=== PATIENT | female | born 1975 | race Caucasian/White ===

== ENCOUNTER 2016-11-14 07:57 | Inpatient (IN) | payer OTHER ==
[2016-11-14 08:03] VITALS: TEMP 98.2; O2SAT 96
[2016-11-14] MEDS ORDERED: ONDANSETRON 4 MG/2 ML VIAL ONE (08:16)
[2016-11-14] MEDS ORDERED: NS 1,000 ML IV ONE ×2 (08:30→09:01)
[2016-11-14] MEDS ORDERED: ONDANSETRON 4 MG/2 ML VIAL IVP ONE (08:30)
--- NOTE | 2016-11-14 08:40 | EDPHY ---
H & P Time Seen by Provider: 11/14/16 08:13 HPI/ROS: Chief complaint. Post childbirth complication HPI. Patient is a healthy 41-year-old female gave vaginally 1 week ago at an [facility]. She had some hypertension at the last 2 weeks of her and her delivery was induced. She was in the hospital for several days felt well when she went home. The last 2 nights she has had some mental confusion in the middle the night as well as shaking. She says hard to chew and swallow at times. She has had nausea vomiting. Again it was a vaginal . She had second-degree tear still has some pelvic pain from the sutures. Decreasing lochia. No fever. No headache. No change in her vision though she did have some spots before her vision yesterday when she went for a walk but she attributes this to low blood sugar. She normally does not have high blood pressure. 2 para 1, intrauterine demise at 22 weeks ROS Constitutional. no fever/chills, no weakness Eyes. no problems with vision ENT. no sore throat, no nasal drainage Cardiovascular. no chest pain Respiratory. no shortness of breath, no cough Abdominal. Low abdominal pain with nausea and vomiting . no problems urinating MS. no calf pain/swelling, no neck/back pain, no joint pain Skin. no rash Lymph. no swollen glands Neuro. Shaky and confusion Past Medical/Surgical History: Healthy Social History: , nonsmoker, no alcohol Smoking Status: Never smoked Physical Exam: General Appearance: Alert well-developed female initially crying moderate distress vital signs show heart rate 122 blood pressure 161/111 Eyes: Pupils equal and round no pallor or injection. ENT, Mouth: Mucous membranes are moist. Respiratory: There are no retractions, lungs are clear to auscultation. Cardiovascular: Regular rate and rhythm. Gastrointestinal: Abdomen is soft and nontender, no masses, bowel sounds normal. Neurological: Awake and alert, sensory and motor exams grossly normal. Skin: Warm and dry, no rashes. Musculoskeletal: Neck is supple nontender. Extremities symmetrical, full range of motion. Psychiatric: Patient is oriented X 3, there is no agitation. Constitutional: Initial Vital Signs Temperature (C) 36.8 C 11/14/16 08:00 Heart Rate 122 H 11/14/16 08:00 Respiratory Rate 19 11/14/16 08:00 Blood Pressure 161/111 H 11/14/16 08:00 O2 Sat (%) 96 11/14/16 08:00 O2 Delivery Mode Room Air Allergies/Adverse Reactions: amoxicillin trihydrate [From Augmentin] Allergy (Verified 11/14/16 10:04) Other-Enter Comments bupropion HCl [From Wellbutrin] Allergy (Verified 11/14/16 10:04) Other-Enter Comments potassium clavulanate [From Augmentin] Allergy (Verified 11/14/16 10:04) Other-Enter Comments Home Medications: Medication Instructions Recorded Herbals/Supplements -Info Only 1 ea PO DAILY 11/14/16 Ibuprofen [Motrin (*)] 600 mg PO Q6H 11/14/16 Medical Decision Making Procedures: IV normal saline. [place] Patient is given labetalol by mouth in our emergency department for high blood pressure ED Course/Re-evaluation: 9:30 a.m. repeat blood pressure 165/105. Patient has another emotional outburst I have consulted and discussed the case with Dr. Cassy Mejias who recommends admission. Her PA will come to see the patient in the department. I have discussed lab data results with the patient and her . We discussed treatment plan including need for admission and further evaluation they expressed understanding and agreement Differential Diagnosis: The patient developed hypertension in the last 2 weeks of her and her delivery was induced. She has liver function studies but not low platelets or fragmented red cells. I am concerned about preeclampsia and HELLP syndrome as well - Data Points Laboratory Results: Laboratory Results 11/14/16 09:33 11/14/16 08:25 11/14/16 11/14/16 11/14/16 09:33 08:50 08:25 WBC RBC Hgb Hct MCV MCH MCHC RDW Plt Count 384 10^3/uL 10^3/uL (150-400) MPV Neut % (Auto) Lymph % (Auto) [place] % (Auto) Eos % (Auto) Baso % (Auto) Nucleat RBC Rel Count Absolute Neuts (auto) Absolute Lymphs (auto) Absolute Monos (auto) Absolute Eos (auto) Absolute Basos (auto) Absolute Nucleated RBC Immature Gran % Seg Neutrophils % Band Neutrophils % Lymphocytes % Monocytes % Eosinophils % Basophils % Metamyelocytes % Myelocytes % Immature Gran # Absolute Seg Neuts Absolute Band Neuts Absolute Lymphocytes Absolute Monocytes Absolute Eosinophils Absolute Basophils Absolute Metamyelocyte Absolute Myelocytes Nucleated RBCs Platelet Estimate Normal RBC Morphology SEE COMMENT (NORMAL) Polychromasia Smear Review By PT 11.7 SEC L SEC (12.0-15.0) INR 0.87 (0.83-1.16) APTT 27.0 SEC SEC (23.0-38.0) Fibrinogen 518 mg/dL H mg/dL (214-456) D-Dimer 1.83 ug/mLFEU H ug/mLFEU (0.00-0.50) Coag Pathologist Com Pending Sodium 138 mEq/L mEq/L (134-144) Potassium 5.1 mEq/L mEq/L (3.5-5.2) Chloride 108 mEq/L mEq/L (97-110) Carbon Dioxide 21 mEq/l L mEq/l (22-31) Anion Gap 9 mEq/L mEq/L (8-16) BUN 19 mg/dL mg/dL (7-23) Creatinine 0.7 mg/dL mg/dL (0.6-1.0) Estimated GFR > 60 Glucose 93 mg/dL mg/dL (70-100) Uric Acid 3.2 mg/dL mg/dL (2.5-6.8) Calcium 9.5 mg/dL mg/dL (8.5-10.4) Total Bilirubin 0.4 mg/dL mg/dL (0.1-1.4) Conjugated Bilirubin 0.4 mg/dL mg/dL (0.0-0.5) Unconjugated Bilirubin 0.0 mg/dL mg/dL (0.0-1.1) AST 60 IU/L H IU/L (14-46) ALT 100 IU/L H IU/L (9-52) Alkaline Phosphatase 126 IU/L IU/L (38-126) Total Protein 6.2 g/dL L g/dL (6.3-8.2) Albumin 3.5 g/dL g/dL (3.5-5.0) Urine Color PALE YELLOW Urine Appearance CLEAR Urine pH 6.0 (5.0-7.5) Ur Specific [place] 1.002 (1.002-1.030) Urine Protein NEGATIVE (NEGATIVE) Urine Ketones NEGATIVE (NEGATIVE) Urine Blood 1+ H (NEGATIVE) Urine Nitrate NEGATIVE (NEGATIVE) Urine Bilirubin NEGATIVE (NEGATIVE) Urine Urobilinogen NEGATIVE EU EU (0.2-1.0) Ur Leukocyte Esterase NEGATIVE (NEGATIVE) Urine RBC NONE SEEN /hpf /hpf (0-3) Urine WBC NONE SEEN /hpf /hpf (0-3) Ur Epithelial Cells NONE SEEN /lpf /lpf (NONE-1+) Ur Culture Indicated? NOT INDICATED (NI) Urine Glucose NEGATIVE (NEGATIVE) 11/14/16 08:25 WBC 8.48 10^3/uL 10^3/uL (3.80-9.50) RBC 3.51 10^6/uL L 10^6/uL (4.18-5.33) Hgb 11.5 g/dL L g/dL (12.6-16.3) Hct 32.9 % L % (38.0-47.0) MCV 93.7 fL fL (81.5-99.8) MCH 32.8 pg pg (27.9-34.1) MCHC 35.0 g/dL g/dL (32.4-36.7) RDW 12.6 % % (11.5-15.2) Plt Count 320 10^3/uL 10^3/uL (150-400) MPV 9.4 fL fL (8.7-11.7) Neut % (Auto) Not Reported Lymph % (Auto) Not Reported [place] % (Auto) Not Reported Eos % (Auto) Not Reported Baso % (Auto) Not Reported Nucleat RBC Rel Count 0.4 % H % (0.0-0.2) Absolute Neuts (auto) Not Reported Absolute Lymphs (auto) Not Reported Absolute Monos (auto) Not Reported Absolute Eos (auto) Not Reported Absolute Basos (auto) Not Reported Absolute Nucleated RBC 0.03 10^3/uL H 10^3/uL (0-0.01) Immature Gran % Not Reported Seg Neutrophils % 63 % % Band Neutrophils % 3 % % Lymphocytes % 24 % % Monocytes % 4 % % Eosinophils % 2 % % Basophils % 1 % % Metamyelocytes % 2 % % Myelocytes % 1 % % Immature Gran # Not Reported Absolute Seg Neuts 5.34 10^/uL 10^/uL (1.70-6.50) Absolute Band Neuts 0.25 10^3/uL 10^3/uL (0.00-0.70) Absolute Lymphocytes 2.04 10^3/uL 10^3/uL (1.00-3.00) Absolute Monocytes 0.34 10^3/uL 10^3/uL (0.30-0.80) Absolute Eosinophils 0.17 10^3/uL 10^3/uL (0.03-0.40) Absolute Basophils 0.08 10^3/uL 10^3/uL (0.02-0.10) Absolute Metamyelocyte 0.17 10^3/mL H 10^3/mL (0.00-0.00) Absolute Myelocytes 0.08 10^3/mL H 10^3/mL (0.00-0.00) Nucleated RBCs 1 /100 WBC H /100 WBC (0-0) Platelet Estimate ADEQUATE (ADEQ) Normal RBC Morphology Polychromasia 1+ H Smear Review By Pending PT INR APTT Fibrinogen D-Dimer Coag Pathologist Com Sodium Potassium Chloride Carbon Dioxide Anion Gap BUN Creatinine Estimated GFR Glucose Uric Acid Calcium Total Bilirubin Conjugated Bilirubin Unconjugated Bilirubin AST ALT Alkaline Phosphatase Total Protein Albumin Urine Color Urine Appearance Urine pH Ur Specific [place] Urine Protein Urine Ketones Urine Blood Urine Nitrate Urine Bilirubin Urine Urobilinogen Ur Leukocyte Esterase Urine RBC Urine WBC Ur Epithelial Cells Ur Culture Indicated? Urine Glucose Medications Given: Discontinued Medications Sodium Chloride (Ns) 1,000 mls @ 0 mls/hr IV ONCE ONE PRN Reason: Wide Open Stop: 11/14/16 08:31 Last Admin: 11/14/16 08:31 Dose: 1,000 mls Sodium Chloride (Ns) 1,000 mls @ 0 mls/hr IV ONCE ONE PRN Reason: Wide Open Stop: 11/14/16 09:02 Last Admin: 11/14/16 09:03 Dose: 1,000 mls Labetalol HCl (Trandate) 200 mg PO ONCE ONE Stop: 11/14/16 09:41 Last Admin: 11/14/16 10:20 Dose: 200 mg Ondansetron HCl (Zofran) 4 mg IVP EDNOW ONE Stop: 11/14/16 08:31 Last Admin: 11/14/16 08:31 Dose: 4 mg Departure - Departure Disposition: [facility] Inpatient Acute Clinical Impression: Preeclampsia Qualifiers: Trimester: unspecified trimester Qualified Code(s): O14.90 - Unspecified pre- eclampsia, unspecified trimester HELLP syndrome Qualifiers: Trimester: unspecified trimester Qualified Code(s): O14.20 - HELLP syndrome ( HELLP), unspecified trimester Condition: Fair
[2016-11-14 08:51] LABS: ABSOLUTE NRBC COUNT 0.03 10^3/uL (0-0.01); ADD DIFF? YES; ADD MORPH? NO; ADD SCAN? NO; ATYPICAL LYMPHOCYTE FLAG 10 (0-99); FRAGMENT RBC FLAG 0 (0-99); HEMATOCRIT 32.9 % (38.0-47.0); HEMOGLOBIN 11.5 g/dL (12.6-16.3); LEFT SHIFT FLG 40 (0-99); LIPEMIA HEMOLYSIS FLAG 90 (0-99); MEAN CELL HEMOGLOBIN 32.8 pg (27.9-34.1); MEAN CELL VOLUME 93.7 fL (81.5-99.8); MEAN PLATELET VOLUME 9.4 fL (8.7-11.7); NRBC-AUTO% 0.4 % (0.0-0.2); PLATELET CLUMPS FLAG 0 (0-99); PLATELET COUNT 320 10^3/uL (150-400); RED BLOOD CELL COUNT 3.51 10^6/uL (4.18-5.33); RED CELL DISTRIBUTION WIDTH 12.6 % (11.5-15.2)
[2016-11-14 08:58] LABS: ALANINE AMINOTRANSFERASE 100 IU/L (9-52); ALBUMIN 3.5 g/dL (3.5-5.0); ALKALINE PHOSPHATASE 126 IU/L (38-126); ANION GAP 9 mEq/L (8-16); ASPARTATE AMINOTRANSFERASE 60 IU/L (14-46); BILIRUBIN,TOTAL 0.4 mg/dL (0.1-1.4); BILIRUBIN-CONJUGATED 0.4 mg/dL (0.0-0.5); CALCIUM 9.5 mg/dL (8.5-10.4); CARBON DIOXIDE 21 mEq/l (22-31); CHLORIDE 108 mEq/L (97-110); CREATININE 0.7 mg/dL (0.6-1.0); GLOMERULAR FILTRATION RATE > 60; GLUCOSE 93 mg/dL (70-100); POTASSIUM 5.1 mEq/L (3.5-5.2); SODIUM 138 mEq/L (134-144); TOTAL PROTEIN 6.2 g/dL (6.3-8.2); URIC ACID 3.2 mg/dL (2.5-6.8)
[2016-11-14 09:25] LABS: COLOR PALE YELLOW; LEUKOCYTE ESTERASE,URINE NEGATIVE (NEGATIVE); NITRITE,URINE NEGATIVE (NEGATIVE)
[2016-11-14 09:39] LABS: RBC,URINE NONE SEEN /hpf (0-3); WBC,URINE NONE SEEN /hpf (0-3)
[2016-11-14] MEDS ORDERED: LABETALOL HCL 200 MG TAB PO ONE (09:40)
[2016-11-14 09:45] LABS: PLATELET ESTIMATE ADEQUATE (ADEQ); POLYCHROMASIA 1+
[2016-11-14 09:56] VITALS: RESP 18
[2016-11-14 10:18] LABS: PLATELET COUNT 384 10^3/uL (150-400)
[2016-11-14 10:37] LABS: INR 0.87 (0.83-1.16); PROTIME(PATIENT) 11.7 SEC (12.0-15.0)
[2016-11-14 10:38] LABS: FIBRINOGEN 518 mg/dL (214-456)
[2016-11-14] MEDS ORDERED: MAGNESIUM SULF 4 GM/WATER 100 ML BAG IV ONE (11:00)
[2016-11-14] MEDS ORDERED: MAGNESIUM SULF 2 GM/WATER 50 ML IV ONE (11:00)
[2016-11-14] MEDS ORDERED: CALCIUM GLUC 10% 1 GM/10 ML VIAL IVP PRN (11:29)
[2016-11-14] MEDS ORDERED: LIDOCAINE 2% JELLY 5 ML TUBE ONE (12:01)
--- NOTE | 2016-11-14 12:36 | PDGENHP ---
History and Physical - Chief Complaint 41 y.o. presents 5 days after delivery after induction for GHTN. - History of Present Illness 41 y.o. female presents 5 days after delivery for GHTN at [facility]. Patient reports not feeling well with increased anxiety and inability to eat. Denies current headaches, visual changes or RUQ pain. Patient seen in ER and noted to have elevated BPs- 160s/100s and elevated LFTs. Called and consulted with Dr. Ho and patient to be admitted to L&D for preeclampsia. History Information - Allergies/Home Medication List Allergies/Adverse Reactions: amoxicillin trihydrate [From Augmentin] Allergy (Verified 11/14/16 10:04) Other-Enter Comments bupropion HCl [From Wellbutrin] Allergy (Verified 11/14/16 10:04) Other-Enter Comments potassium clavulanate [From Augmentin] Allergy (Verified 11/14/16 10:04) Other-Enter Comments Home Medications: Herbals/Supplements -Info Only 1 ea PO DAILY 11/14/16 [Last Taken 11/13/16] Ibuprofen [Motrin (*)] 600 mg PO Q6H 11/14/16 [Last Taken 11/13/16] I have personally reviewed and updated: family history, medical history, social history, surgical history - Past Medical History Additional medical history: anxiety - Surgical History Reports: no pertinent surgical hx - Family History Positive for: non-pertinent - Social History Smoking Status: Never smoked Alcohol Use: None Drug Use: None Review of Systems ROS: 10pt was reviewed & negative except for what was stated in HPI & below Constitutional: Reports: other (anxious) EENMT: Reports: no symptoms Cardiac: Reports: no symptoms Respiratory: Reports: no symptoms Gastrointestinal: Reports: no symptoms Genitourinary: Reports: no symptoms Muscolosketal: Reports: no symptoms Skin: Reports: no symptoms Neurological: Reports: anxiety, emotional problems Hematologic/Lymphatic: Reports: no symptoms Immunologic/Allergy: Reports: no symptoms Physical Exam Temp Pulse Resp BP Pulse Ox 36.8 C 88 18 165/105 H 96 11/14/16 08:00 11/14/16 09:54 11/14/16 09:54 11/14/16 09:54 11/14/16 09:54 Constitutional: other (anxious) Eyes: PERRL Ears, Nose, Mouth, Throat: moist mucous membranes, hearing normal Cardiovascular: regular rate and rhythym, no murmur, rub, or gallop Respiratory: no respiratory distress, no rales or rhonchi Gastrointestinal: normoactive bowel sounds, soft, non-tender abdomen Genitourinary: no bladder fullness Skin: warm, normal color Musculoskeletal: full muscle strength Neurologic: AAOx3, sensation intact bilaterally Psychiatric: anxious, depressed, agitated, poor insight, poor judgement Lymph, Heme, Immunologic: no cervical LAD Lab Data & Imaging Review 11/14/16 09:33 11/14/16 08:25 WBC 8.48 10^3/uL (3.80-9.50) 11/14/16 08:25 RBC 3.51 10^6/uL (4.18-5.33) L 11/14/16 08:25 Hgb 11.5 g/dL (12.6-16.3) L 11/14/16 08:25 Hct 32.9 % (38.0-47.0) L 11/14/16 08:25 MCV 93.7 fL (81.5-99.8) 11/14/16 08:25 MCH 32.8 pg (27.9-34.1) 11/14/16 08:25 MCHC 35.0 g/dL (32.4-36.7) 11/14/16 08:25 RDW 12.6 % (11.5-15.2) 11/14/16 08:25 Plt Count 384 10^3/uL (150-400) 11/14/16 09:33 MPV 9.4 fL (8.7-11.7) 11/14/16 08:25 Neut % (Auto) Not Reported 11/14/16 08:25 Lymph % (Auto) Not Reported 11/14/16 08:25 [place] % (Auto) Not Reported 11/14/16 08:25 Eos % (Auto) Not Reported 11/14/16 08:25 Baso % (Auto) Not Reported 11/14/16 08:25 Nucleat RBC Rel Count 0.4 % (0.0-0.2) H 11/14/16 08:25 Absolute Neuts (auto) Not Reported 11/14/16 08:25 Absolute Lymphs (auto) Not Reported 11/14/16 08:25 Absolute Monos (auto) Not Reported 11/14/16 08:25 Absolute Eos (auto) Not Reported 11/14/16 08:25 Absolute Basos (auto) Not Reported 11/14/16 08:25 Absolute Nucleated RBC 0.03 10^3/uL (0-0.01) H 11/14/16 08:25 Immature Gran % Not Reported 11/14/16 08:25 Seg Neutrophils % 63 % 11/14/16 08:25 Band Neutrophils % 3 % 11/14/16 08:25 Lymphocytes % 24 % 11/14/16 08:25 Monocytes % 4 % 11/14/16 08:25 Eosinophils % 2 % 11/14/16 08:25 Basophils % 1 % 11/14/16 08:25 Metamyelocytes % 2 % 11/14/16 08:25 Myelocytes % 1 % 11/14/16 08:25 Immature Gran # Not Reported 11/14/16 08:25 Absolute Seg Neuts 5.34 10^/uL (1.70-6.50) 11/14/16 08:25 Absolute Band Neuts 0.25 10^3/uL (0.00-0.70) 11/14/16 08:25 Absolute Lymphocytes 2.04 10^3/uL (1.00-3.00) 11/14/16 08:25 Absolute Monocytes 0.34 10^3/uL (0.30-0.80) 11/14/16 08:25 Absolute Eosinophils 0.17 10^3/uL (0.03-0.40) 11/14/16 08:25 Absolute Basophils 0.08 10^3/uL (0.02-0.10) 11/14/16 08:25 Absolute Metamyelocyte 0.17 10^3/mL (0.00-0.00) H 11/14/16 08:25 Absolute Myelocytes 0.08 10^3/mL (0.00-0.00) H 11/14/16 08:25 Nucleated RBCs 1 /100 WBC (0-0) H 11/14/16 08:25 Platelet Estimate ADEQUATE (ADEQ) 11/14/16 08:25 Normal RBC Morphology SEE COMMENT (NORMAL) 11/14/16 09:33 Polychromasia 1+ H 11/14/16 08:25 PT 11.7 SEC (12.0-15.0) L 11/14/16 09:33 INR 0.87 (0.83-1.16) 11/14/16 09:33 APTT 27.0 SEC (23.0-38.0) 11/14/16 09:33 Fibrinogen 518 mg/dL (214-456) H 11/14/16 09:33 D-Dimer 1.83 ug/mLFEU (0.00-0.50) H 11/14/16 09:33 Sodium 138 mEq/L (134-144) 11/14/16 08:25 Potassium 5.1 mEq/L (3.5-5.2) 11/14/16 08:25 Chloride 108 mEq/L (97-110) 11/14/16 08:25 Carbon Dioxide 21 mEq/l (22-31) L 11/14/16 08:25 Anion Gap 9 mEq/L (8-16) 11/14/16 08:25 BUN 19 mg/dL (7-23) 11/14/16 08:25 Creatinine 0.7 mg/dL (0.6-1.0) 11/14/16 08:25 Estimated GFR > 60 11/14/16 08:25 Glucose 93 mg/dL (70-100) 11/14/16 08:25 Uric Acid 3.2 mg/dL (2.5-6.8) 11/14/16 08:25 Calcium 9.5 mg/dL (8.5-10.4) 11/14/16 08:25 Total Bilirubin 0.4 mg/dL (0.1-1.4) 11/14/16 08:25 Conjugated Bilirubin 0.4 mg/dL (0.0-0.5) 11/14/16 08:25 Unconjugated Bilirubin 0.0 mg/dL (0.0-1.1) 11/14/16 08:25 AST 60 IU/L (14-46) H 11/14/16 08:25 ALT 100 IU/L (9-52) H 11/14/16 08:25 Alkaline Phosphatase 126 IU/L (38-126) 11/14/16 08:25 Total Protein 6.2 g/dL (6.3-8.2) L 11/14/16 08:25 Albumin 3.5 g/dL (3.5-5.0) 11/14/16 08:25 Urine Color PALE YELLOW 11/14/16 08:50 Urine Appearance CLEAR 11/14/16 08:50 Urine pH 6.0 (5.0-7.5) 11/14/16 08:50 Ur Specific [place] 1.002 (1.002-1.030) 11/14/16 08:50 Urine Protein NEGATIVE (NEGATIVE) 11/14/16 08:50 Urine Ketones NEGATIVE (NEGATIVE) 11/14/16 08:50 Urine Blood 1+ (NEGATIVE) H 11/14/16 08:50 Urine Nitrate NEGATIVE (NEGATIVE) 11/14/16 08:50 Urine Bilirubin NEGATIVE (NEGATIVE) 11/14/16 08:50 Urine Urobilinogen NEGATIVE EU (0.2-1.0) 11/14/16 08:50 Ur Leukocyte Esterase NEGATIVE (NEGATIVE) 11/14/16 08:50 Urine RBC NONE SEEN /hpf (0-3) 11/14/16 08:50 Urine WBC NONE SEEN /hpf (0-3) 11/14/16 08:50 Ur Epithelial Cells NONE SEEN /lpf (NONE-1+) 11/14/16 08:50 Ur Culture Indicated? NOT INDICATED (NI) 11/14/16 08:50 Urine Glucose NEGATIVE (NEGATIVE) 11/14/16 08:50 Assessment & Plan Assessment: 41 y.o. s/p 5 days after IOL for GHTN. Admitted to L&D for preeclampsia with elevated BPs and LFTs. Plan: Admit patient to L&D. BPs every 15 minutes. MgSo4 4 gm loading and then 2 gm maintence. PIH labs every 6 hours. Issa catheter. Monitor I&O and call if urine output less than 30cc/hour. Labetalol 200mg PO BID.
[2016-11-14] MEDS ORDERED: ONDANSETRON 4 MG/2 ML VIAL IVP PRN (12:40)
[2016-11-14] MEDS ORDERED: ONDANSETRON DISINTEGRATING 4 MG TAB PO PRN (12:40)
[2016-11-14] MEDS: D5W LR 1,000 ML IV SCH (12:59)
[2016-11-14] MEDS: Mag Sulf 500 ML IV SCH ×2 (13:51→23:05)
[2016-11-14] MEDS: ACETAMINOPHEN 325 MG TAB PO PRN ×2 (14:25→19:55)
[2016-11-14 15:15] LABS: ALANINE AMINOTRANSFERASE 94 IU/L (9-52); ASPARTATE AMINOTRANSFERASE 53 IU/L (14-46); CREATININE 0.7 mg/dL (0.6-1.0); GLOMERULAR FILTRATION RATE > 60; LACTATE DEHYDROGENASE 737 IU/L (313-618); URIC ACID 3.3 mg/dL (2.5-6.8)
[2016-11-14 15:16] LABS: ABSOLUTE NRBC COUNT 0.02 10^3/uL (0-0.01); ADD DIFF? YES; ADD MORPH? NO; ADD SCAN? NO; ATYPICAL LYMPHOCYTE FLAG 10 (0-99); FRAGMENT RBC FLAG 0 (0-99); HEMATOCRIT 31.9 % (38.0-47.0); HEMOGLOBIN 10.7 g/dL (12.6-16.3); LEFT SHIFT FLG 40 (0-99); LIPEMIA HEMOLYSIS FLAG 80 (0-99); MEAN CELL HEMOGLOBIN 31.8 pg (27.9-34.1); MEAN CELL HEMOGLOBIN CONCENTR. 33.5 g/dL (32.4-36.7); MEAN CELL VOLUME 94.9 fL (81.5-99.8); MEAN PLATELET VOLUME 9.2 fL (8.7-11.7); NRBC-AUTO% 0.3 % (0.0-0.2); PLATELET CLUMPS FLAG 10 (0-99); PLATELET COUNT 343 10^3/uL (150-400); RED BLOOD CELL COUNT 3.36 10^6/uL (4.18-5.33); RED CELL DISTRIBUTION WIDTH 12.7 % (11.5-15.2)
[2016-11-14 16:27] LABS: PLATELET ESTIMATE ADEQUATE (ADEQ)
[2016-11-14] MEDS ORDERED: LACTULOSE 20 GM/30 ML UDCUP PO PRN (18:04)
[2016-11-14] MEDS ORDERED: BISACODYL 10 MG SUPP PR PRN (18:04)
[2016-11-14] MEDS ORDERED: POLYETHYLENE GLYCOL 3350 17 GM PKT PO PRN (18:04)
[2016-11-14] MEDS ORDERED: MAGNESIUM HYDROXIDE 30 ML UDCUP PO PRN (18:04)
[2016-11-14] MEDS: LABETALOL HCL 200 MG TAB PO SCH (21:01)
[2016-11-14] MEDS: SENNOSIDES/DOCUSATE SODIUM TAB PO SCH (22:33)
[2016-11-14] MEDS: DOCUSATE SODIUM 100 MG CAP PO PRN (23:05)
[2016-11-15] MEDS: ACETAMINOPHEN 325 MG TAB PO PRN (03:54)
[2016-11-15 06:39] LABS: ADD DIFF? YES; ADD MORPH? NO; ADD SCAN? NO; ATYPICAL LYMPHOCYTE FLAG 10 (0-99); FRAGMENT RBC FLAG 0 (0-99); HEMATOCRIT 31.1 % (38.0-47.0); HEMOGLOBIN 10.4 g/dL (12.6-16.3); LEFT SHIFT FLG 20 (0-99); LIPEMIA HEMOLYSIS FLAG 80 (0-99); MEAN CELL HEMOGLOBIN 31.9 pg (27.9-34.1); MEAN CELL HEMOGLOBIN CONCENTR. 33.4 g/dL (32.4-36.7); MEAN CELL VOLUME 95.4 fL (81.5-99.8); MEAN PLATELET VOLUME 9.2 fL (8.7-11.7); PLATELET CLUMPS FLAG 0 (0-99); PLATELET COUNT 266 10^3/uL (150-400); RED BLOOD CELL COUNT 3.26 10^6/uL (4.18-5.33); RED CELL DISTRIBUTION WIDTH 12.7 % (11.5-15.2)
[2016-11-15 06:48] LABS: ALANINE AMINOTRANSFERASE 86 IU/L (9-52); ASPARTATE AMINOTRANSFERASE 46 IU/L (14-46); BILIRUBIN,TOTAL 0.3 mg/dL (0.1-1.4); BILIRUBIN-CONJUGATED 0.3 mg/dL (0.0-0.5); CREATININE 0.7 mg/dL (0.6-1.0); GLOMERULAR FILTRATION RATE > 60; GLUCOSE 96 mg/dL (70-100); LACTATE DEHYDROGENASE 720 IU/L (313-618); URIC ACID 3.8 mg/dL (2.5-6.8)
[2016-11-15 07:18] LABS: PLATELET ESTIMATE ADEQUATE (ADEQ); POLYCHROMASIA 1+
[2016-11-15] MEDS: DOCUSATE SODIUM 100 MG CAP PO PRN ×2 (08:03→20:19)
[2016-11-15] MEDS ORDERED: LABETALOL HCL 100 MG TAB PO ONE (09:56)
--- NOTE | 2016-11-15 10:00 | SOAPPROG ---
SOAP Progress Note Assessment/Plan: Assessment: 41 y.o. female was seen in ER yesterday and admitted to L&D for preeclampsia. Patient was started on MgSO4 yesterday and reports feeling better today. Reports mild headache, alleviated with Tylenol. Denies visual changes or RUQ pain. Plan: Discontinue MgSO4 after 24 hours. Advance to regular diet and allow patient to ambulate after MgSO4 discontinued. Continue pumping and . Continue to monitor patient's BPs and PIH labs. 11/15/16 09:56 Subjective: Patient reports feeling much better today. Reports decreased anxiety. Hospital counselor/ social media editor present to evaluate patient. Reports mild headache, alleviated with Tylenol. Denies visual changes or RUQ pain. Pumping and . Reports minimal vaginal bleeding and discomfort. Concerned over persistant right leg neuropathy, so Neurology consult ordered. Appropriate mood today. Objective: Vital Signs Temp Pulse Resp BP Pulse Ox 36.8 C 95 18 127/68 H 96 11/14/16 08:00 11/14/16 21:01 11/14/16 09:54 11/14/16 21:01 11/14/16 09:54 Laboratory Results 11/15/16 05:55 11/15/16 05:55 11/14/16 11/15/16 11/16/16 05:59 05:59 05:59 Intake Total 5700 Output Total 5175 Balance 525 PT 11.7 SEC (12.0-15.0) L 11/14/16 09:33 INR 0.87 (0.83-1.16) 11/14/16 09:33 - Time Spent With Patient Time Spent With Patient: 20 minutes - Pending Discharge Pending Discharge Within 24 Hours: No Pending Discharge Within 48 Hours: Yes Pending Discharge Date: 11/17/16 Pending Discharge Time: 11:00 Physical Exam - Physical Exam General Appearance: WD/WN, alert, anxiety EENT: normal ENT inspection Neck: non-tender, full range of motion, normal inspection Respiratory: chest non-tender, lungs clear, normal breath sounds Cardiac/Chest: normal peripheral pulses, regular rate, rhythm Abdomen: non-tender, soft Pelvic Exam: normal external exam Rectal: deferred Back: Normal inspection Skin: normal color, warm/dry Lymphatic: no adenopathy Extremities: normal range of motion, non-tender Neuro/Psych: alert, normal mood/affect, oriented x 3 ICD10 Worksheet Patient Problems: Problems Problem Status Onset HELLP syndrome Acute Preeclampsia Acute
[2016-11-15] MEDS: D5W LR 1,000 ML IV SCH (10:01)
[2016-11-15] MEDS: Mag Sulf 500 ML IV SCH (10:01)
[2016-11-15] MEDS: LABETALOL HCL 200 MG TAB PO SCH (11:10)
[2016-11-15] MEDS: SENNOSIDES/DOCUSATE SODIUM TAB PO SCH ×2 (11:10→14:06)
[2016-11-15] MEDS: SERTRALINE HCL 25 MG TAB PO SCH ×2 (14:07→20:11)
[2016-11-15 14:18] LABS: % IMMATURE GRANULYOCYTES 2.6 % (0.0-1.1); ADD DIFF? NO; ADD MORPH? NO; ADD SCAN? NO; ATYPICAL LYMPHOCYTE FLAG 10 (0-99); FRAGMENT RBC FLAG 0 (0-99); HEMATOCRIT 33.6 % (38.0-47.0); HEMOGLOBIN 11.3 g/dL (12.6-16.3); LEFT SHIFT FLG 20 (0-99); LIPEMIA HEMOLYSIS FLAG 80 (0-99); MEAN CELL HEMOGLOBIN 32.1 pg (27.9-34.1); MEAN CELL HEMOGLOBIN CONCENTR. 33.6 g/dL (32.4-36.7); MEAN CELL VOLUME 95.5 fL (81.5-99.8); MEAN PLATELET VOLUME 9.1 fL (8.7-11.7); PLATELET CLUMPS FLAG 0 (0-99); PLATELET COUNT 323 10^3/uL (150-400); RED BLOOD CELL COUNT 3.52 10^6/uL (4.18-5.33); RED CELL DISTRIBUTION WIDTH 12.9 % (11.5-15.2)
[2016-11-15 14:59] LABS: ALANINE AMINOTRANSFERASE 84 IU/L (9-52); ASPARTATE AMINOTRANSFERASE 45 IU/L (14-46); CREATININE 0.7 mg/dL (0.6-1.0); GLOMERULAR FILTRATION RATE > 60; LACTATE DEHYDROGENASE 750 IU/L (313-618); URIC ACID 3.9 mg/dL (2.5-6.8)
[2016-11-15 20:20] LABS: % IMMATURE GRANULYOCYTES 2.1 % (0.0-1.1); ABSOLUTE IMMATURE GRANULOCYTES 0.18 10^3/uL (0.00-0.10); ADD DIFF? NO; ADD MORPH? NO; ADD SCAN? NO; ATYPICAL LYMPHOCYTE FLAG 0 (0-99); FRAGMENT RBC FLAG 0 (0-99); HEMATOCRIT 33.5 % (38.0-47.0); HEMOGLOBIN 11.4 g/dL (12.6-16.3); LEFT SHIFT FLG 10 (0-99); LIPEMIA HEMOLYSIS FLAG 90 (0-99); MEAN CELL HEMOGLOBIN 32.9 pg (27.9-34.1); MEAN CELL VOLUME 96.5 fL (81.5-99.8); PLATELET CLUMPS FLAG 0 (0-99); PLATELET COUNT 338 10^3/uL (150-400); RED BLOOD CELL COUNT 3.47 10^6/uL (4.18-5.33); RED CELL DISTRIBUTION WIDTH 12.9 % (11.5-15.2)
[2016-11-15] MEDS: LABETALOL HCL 100 MG TAB PO SCH (20:24)
[2016-11-15 20:25] VITALS: PULSE 87
[2016-11-15 20:41] LABS: ALANINE AMINOTRANSFERASE 81 IU/L (9-52); ASPARTATE AMINOTRANSFERASE 42 IU/L (14-46); BILIRUBIN,TOTAL 0.4 mg/dL (0.1-1.4); BILIRUBIN-CONJUGATED 0.4 mg/dL (0.0-0.5); CREATININE 0.8 mg/dL (0.6-1.0); GLOMERULAR FILTRATION RATE > 60; LACTATE DEHYDROGENASE 765 IU/L (313-618); URIC ACID 4.3 mg/dL (2.5-6.8)
[2016-11-16 01:55] LABS: % IMMATURE GRANULYOCYTES 1.8 % (0.0-1.1); ABSOLUTE IMMATURE GRANULOCYTES 0.15 10^3/uL (0.00-0.10); ADD DIFF? NO; ADD MORPH? NO; ADD SCAN? NO; ATYPICAL LYMPHOCYTE FLAG 0 (0-99); FRAGMENT RBC FLAG 0 (0-99); HEMATOCRIT 33.5 % (38.0-47.0); LEFT SHIFT FLG 10 (0-99); LIPEMIA HEMOLYSIS FLAG 80 (0-99); MEAN CELL HEMOGLOBIN 31.2 pg (27.9-34.1); MEAN CELL HEMOGLOBIN CONCENTR. 32.8 g/dL (32.4-36.7); MEAN CELL VOLUME 94.9 fL (81.5-99.8); MEAN PLATELET VOLUME 8.6 fL (8.7-11.7); PLATELET CLUMPS FLAG 0 (0-99); PLATELET COUNT 315 10^3/uL (150-400); RED BLOOD CELL COUNT 3.53 10^6/uL (4.18-5.33); RED CELL DISTRIBUTION WIDTH 12.9 % (11.5-15.2)
[2016-11-16 02:11] LABS: ALANINE AMINOTRANSFERASE 74 IU/L (9-52); ASPARTATE AMINOTRANSFERASE 39 IU/L (14-46); CREATININE 0.7 mg/dL (0.6-1.0); GLOMERULAR FILTRATION RATE > 60; LACTATE DEHYDROGENASE 750 IU/L (313-618); URIC ACID 4.3 mg/dL (2.5-6.8)
[2016-11-16] MEDS ORDERED: LORazepam 2 MG/ML INJ IVP ONE (08:30)
[2016-11-16 09:12] LABS: % IMMATURE GRANULYOCYTES 2.7 % (0.0-1.1); ABSOLUTE IMMATURE GRANULOCYTES 0.24 10^3/uL (0.00-0.10); ADD DIFF? NO; ADD MORPH? NO; ADD SCAN? NO; ATYPICAL LYMPHOCYTE FLAG 10 (0-99); FRAGMENT RBC FLAG 10 (0-99); HEMATOCRIT 37.2 % (38.0-47.0); HEMOGLOBIN 12.4 g/dL (12.6-16.3); LEFT SHIFT FLG 20 (0-99); LIPEMIA HEMOLYSIS FLAG 80 (0-99); MEAN CELL HEMOGLOBIN CONCENTR. 33.3 g/dL (32.4-36.7); MEAN CELL VOLUME 96.1 fL (81.5-99.8); MEAN PLATELET VOLUME 9.1 fL (8.7-11.7); PLATELET CLUMPS FLAG 0 (0-99); PLATELET COUNT 421 10^3/uL (150-400); RED BLOOD CELL COUNT 3.87 10^6/uL (4.18-5.33); RED CELL DISTRIBUTION WIDTH 12.7 % (11.5-15.2)
[2016-11-16 09:20] LABS: ALANINE AMINOTRANSFERASE 77 IU/L (9-52); ASPARTATE AMINOTRANSFERASE 39 IU/L (14-46); BILIRUBIN,TOTAL 0.5 mg/dL (0.1-1.4); BILIRUBIN-CONJUGATED 0.2 mg/dL (0.0-0.5); BILIRUBIN-UNCONJUGATED 0.3 mg/dL (0.0-1.1); CREATININE 0.7 mg/dL (0.6-1.0); GLOMERULAR FILTRATION RATE > 60; LACTATE DEHYDROGENASE 795 IU/L (313-618)
[2016-11-16] MEDS: LABETALOL HCL 100 MG TAB PO SCH (09:49)
[2016-11-16 09:50] VITALS: BP 130/68
[2016-11-16] MEDS: SENNOSIDES/DOCUSATE SODIUM TAB PO SCH (09:50)
--- NOTE | 2016-11-16 10:04 | PDDCSUM ---
Discharge Summary Discharge Summary: 41 y.o. female s/p on 11/09/[address] [facility]. Patient was discharged home on 11/12/16. Patient then began experiencing increased anxiety, shaking and inability to eat/ drink. Patient was brought to [facility] ER on 11/14/16 and diagnosed with preeclampsia. Patient admitted to L&D for preeclampsia and had MgSO4 initiated. Patient also was experiencing severe anxiety. Patient began feeling better after beginning MgSO4. Patient was seen by and social media editor. Discussed and patient started on Zoloft. Patient experienced more anxiety and requested and was given Ativan 1mg with good relief. Patient feels better and prepared for discharge to home. Will discharge patient with Labetalol, Zoloft and Ativan PRN. Patient to f /u with her OB provider and counselor this week. Reviewed PP precautions and warning signs. Reviewed depression warning signs and when to call or be seen in ER. Patient currently denies thoughts of harm to herself or other.
--- NOTE | 2016-11-16 13:21 | PDCONSULT ---
Escalator Installer Note: Consultation notification received. Patient being discharged already. Discussed with nursing. Patient admitted with post- preeclampsia successfully treated and stabilized. Patient also made note of continued right thigh numbness since delivery and discontinuation of epidural. 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 Most common sites are lateral femoral cutaneous nerve (most likely given report of no weakness and no gait disturbance) and femoral nerve at the inguinal ligament. Less common is the obturator nerve sensory branch. She is able to ambulate and has no noted deficit, aside from numbness in the thigh, per nursing. I recommend followup in neurology clinic in 4 weeks if symptoms continue without improvement - most of these types of injuries tend to resolve spontaneously at 6-8 weeks. Patient not seen or examined since she was being discharged. NC.
[2016-11-16] MEDS: SERTRALINE HCL 25 MG TAB PO SCH (13:52)
== END 2016-11-16 13:45 | disposition home or self-care (01) | DRG 776 ==
LOC: FLD 09:53
PROVIDERS: ADMIT Obstetrics & Gynecology; ATTEND Obstetrics & Gynecology
DX: O14.95 Unspecified pre-eclampsia, complicating the puerperium (principal); O99.345 Other mental disorders complicating the puerperium; F41.9 Anxiety disorder, unspecified
CPT/HCPCS: 82947-QW; 96374; 97165-GO; G0463; J0610; J2405; J3475